=== PATIENT | female | born 1945 | race Two or more races ===

== ENCOUNTER 2020-02-21 13:50 | Outpatient (CLI) | payer OTHER ==
[~2020-02-21 13:50] MED LIST: ZANTAC300 MG PO
== END 2020-02-21 13:57 | disposition home or self-care (01) ==
LOC: RAD 13:50
PROVIDERS: ATTEND Orthopaedic Surgery
DX: M25.562 Pain in left knee (principal); M25.561 Pain in right knee
CPT/HCPCS: 73718

== ENCOUNTER 2020-08-21 12:55 | Inpatient (IN) | payer OTHER ==
[~2020-08-21] VITALS: Ht 152.4 cm; Wt 59.0 kg
[~2020-08-21 12:55] MED LIST changes: +ATORVASTATIN CA20 MG PO
[2020-09-01] MEDS ORDERED: CIPROFLOXACIN500 MG (14:41)
[2020-09-01] MEDS ORDERED: ENALAPRIL-HCTZ1 EACH (14:41)
[2020-09-03] MEDS ORDERED: INTEGRA PLUS C1 EACH PO (07:38)
[2020-09-03] MEDS ORDERED: OXYC1TAB9 PO (07:38)
[2020-09-03] MEDS ORDERED: XARELTO10 MG PO (07:38)
== END 2020-09-03 22:29 | DRG 470 ==
LOC: O/R 09-01 06:22 → SURH 09-01 06:22
PROVIDERS: ADMIT Orthopaedic Surgery Sports Medicine; ATTEND Orthopaedic Surgery Sports Medicine
PROC: 0SRD0J9 Replacement of Left Knee Joint with Synthetic Substitute, Cemented, Open Approach (ICD-10-PCS; principal; 2020-09-01 14:30)
DX: M17.12 Unilateral primary osteoarthritis, left knee (principal); I10 Essential (primary) hypertension; E78.5 Hyperlipidemia, unspecified; Z20.822 Contact with and (suspected) exposure to COVID-19

== ENCOUNTER 2020-09-04 | Emergency (ER) | payer OTHER ==
[~2020-09-04] VITALS: Ht 152.4 cm; Wt 56.7 kg
[~2020-09-04] MED LIST changes: +CIPROFLOXACIN500 MG; +ENALAPRIL-HCTZ1 EACH; +INTEGRA PLUS C1 EACH PO; +OXYC1TAB9 PO; +XARELTO10 MG PO
== END 2020-09-04 14:34 | disposition home or self-care (01) ==
LOC: ER
DX: I16.0 Hypertensive urgency (principal); I10 Essential (primary) hypertension

== ENCOUNTER 2020-12-16 14:41 | Outpatient (CLI) | payer OTHER | END 2020-12-16 14:45 | disposition home or self-care (01) | LOC: RAD 14:41 | PROVIDERS: ATTEND Orthopaedic Surgery Sports Medicine | DX: M17.12 Unilateral primary osteoarthritis, left knee (principal) ==